=== PATIENT | female | born 1995 | race Caucasian/White ===

== ENCOUNTER 2019-08-09 13:59 | Inpatient (IN) | payer OTHER ==
--- NOTE | 2019-08-09 14:34 | ED ---
General Adult HPI - General Source: patient, RN notes reviewed, old records reviewed Mode of arrival: ambulatory Limitations: no limitations <Gui Calabrese - Last Filed: 08/09/19 14:33> <Richard Linares - Last Filed: 08/09/19 16:36> - General Chief complaint: Psychiatric Symptoms Stated complaint: Mental Health Time Seen by Provider: 08/09/19 14:05 - History of Present Illness Initial comments: This is a 24-year-old female who previous psychiatric history. According to the fianc she's been under a lot of stress and very tired lately he states that she lost her mother about 2 years ago and her father about 2 months ago and she has been very depressed about this. This morning she was talking about wanting to end it on that she started walking to [place] to her fianc stopped her. Patient herself states she did want to kill himself but she's never attempted in the past. Patient denies any drug use patient denies any alcohol use recently. Patient denies any physical abuse today. Patient denies headache patient denies numbness weakness. Patient denies chest pain difficulty breathing shortness breath per patient denies any palpations. Patient denies any recent fever chills or cough per patient denies any abdominal pain patient denies nausea vomiting diarrhea. (Gui Calabrese) - Related Data Allergies Allergy/AdvReac Type Severity Reaction Status Date / Time sulfamethoxazole Allergy Rash/Hives Verified 08/09/19 15:34 [From Bactrim] trimethoprim [From Bactrim] Allergy Rash/Hives Verified 08/09/19 15:34 Review of Systems ROS Other: All systems not noted in ROS Statement are negative. <Gui Calabrese - Last Filed: 08/09/19 14:33> ROS Other: All systems not noted in ROS Statement are negative. <Richard Linares - Last Filed: 08/09/19 16:36> ROS Statement: Those systems with pertinent positive or pertinent negative responses have been documented in the HPI. Past Medical History Additional Past Medical History / Comment(s): leukemia age 4 History of Any Multi-Drug Resistant Organisms: None Reported Additional Past Surgical History / Comment(s): ankle Past Psychological History: No Psychological Hx Reported Smoking Status: Current every day smoker Past Alcohol Use History: Occasional Past Drug Use History: Marijuana <Gui Calabrese - Last Filed: 08/09/19 14:33> General Exam Limitations: no limitations <Gui Calabrese - Last Filed: 08/09/19 14:33> - General Exam Comments Initial Comments: GENERAL: Patient is well-developed and well-nourished. Patient is nontoxic and well- hydrated and is in mild distress. ENT: Neck is soft and supple. No significant lymphadenopathy is noted. Oropharynx is clear. Moist mucous membranes. Neck has full range of motion without eliciting any pain. EYES: The sclera were anicteric and conjunctiva were pink and moist. Extraocular movements were intact and pupils were equal round and reactive to light. Eyelids were unremarkable. PULMONARY: Unlabored respirations. Good breath sounds bilaterally. No audible rales rhonchi or wheezing was noted. CARDIOVASCULAR: There is a regular rate and rhythm without any murmurs gallops or rubs. ABDOMEN: Soft and nontender with normal bowel sounds. SKIN: Skin is clear with no lesions or rashes and otherwise unremarkable. NEUROLOGIC: Patient is alert and oriented x3. Cranial nerves II through XII are grossly intact. Motor and sensory are also intact. Normal speech, volume and content. Symmetrical smile. MUSCULOSKELETAL: Normal extremities with adequate strength and full range of motion. LYMPHATICS: No significant lymphadenopathy is noted PSYCHIATRIC: Normal psychiatric evaluation. (Gui Calabrese) Course Vital Signs 08/09/19 08/09/19 08/09/19 14:03 15:08 16:03 Temperature 98.0 F Pulse Rate 73 Respiratory 18 20 20 Rate Blood Pressure 122/81 O2 Sat by Pulse 99 Oximetry Medical Decision Making <Gui Calabrese - Last Filed: 08/09/19 14:33> <Richard Linares - Last Filed: 08/09/19 16:36> - Medical Decision Making Dr. Linares be taking over the care of this patient at 3:00. (Gui Calabrese) Patient's care had been signed out at shift change awaiting EPS evaluation. Patient was evaluated by EPS and will be admitted for psychiatric evaluation and treatment. Patient is agreeable. She has been admitted to this institution. (Richard Linares) - Lab Data Lab Results 08/09/19 08/09/1920 Range/Units 14:47 14:47 14:47 Urine Color Light Yellow Urine Appearance Clear (Clear) Urine pH 6.5 (5.0-8.0) Ur Specific [place] 1.009 (1.001-1.035) Urine Protein Negative (Negative) Urine Glucose (UA) Negative (Negative) Urine Ketones Negative (Negative) Urine Blood Negative (Negative) Urine Nitrite Negative (Negative) Urine Bilirubin Negative (Negative) Urine Urobilinogen <2.0 (<2.0) mg/dL Ur Leukocyte Esterase Negative (Negative) Urine HCG, Qual Not Detected (Not Detectd) Urine Opiates Screen Not Detected (NotDetected) Ur Oxycodone Screen Not Detected (NotDetected) Urine Methadone Screen Not Detected (NotDetected) Ur Propoxyphene Screen Not Detected (NotDetected) Ur Barbiturates Screen Not Detected (NotDetected) U Tricyclic Antidepress Not Detected (NotDetected) Ur Phencyclidine Scrn Not Detected (NotDetected) Ur Amphetamines Screen Not Detected (NotDetected) U Methamphetamines Scrn Not Detected (NotDetected) U Benzodiazepines Scrn Not Detected (NotDetected) Urine Cocaine Screen Not Detected (NotDetected) U Marijuana (THC) Screen Detected H (NotDetected) Disposition <Gui Calabrese - Last Filed: 08/09/19 14:33> Is patient prescribed a controlled substance at d/c from ED?: No Decision to Admit Reason: Admit from EC Decision Date: 08/09/19 Decision Time: 16:36 <Richard Linares - Last Filed: 08/09/19 16:36> Clinical Impression: Depression, Suicidal ideation Disposition: ADMITTED IP TO THIS [facility] Condition: Stable
[2019-08-09 15:08] LABS: Amphetamine Screen,Urine Not Detected (NotDetected); Barbiturate Screen,Urine Not Detected (NotDetected); Benzodiazepines Screen,Urine Not Detected (NotDetected); Cocaine Screen,Urine Not Detected (NotDetected); Methadone Screen, Urine Not Detected (NotDetected); Opiate Screen,Urine Not Detected (NotDetected); Oxycodone Screen, Urine Not Detected (NotDetected); Phencyclidine Screen,Urine Not Detected (NotDetected); Tricyclic Antidepressant,Urine Not Detected (NotDetected); Urn Cannabinoid Scrn Detected (NotDetected)
[2019-08-09] MEDS ORDERED: ZIPRASIDONE 20 MG VIAL IM PRN (15:55)
[2019-08-09] MEDS ORDERED: MAG HYDROX/AL HYDROX/SIMETH 30 ML CUP PO PRN (15:55)
[2019-08-09] MEDS ORDERED: MAGNESIUM HYDROXIDE 2,400 MG/10 ML CUP PO PRN (15:55)
[2019-08-09] MEDS ORDERED: LORazepam 1 MG TAB PO PRN (15:55)
[2019-08-09] MEDS ORDERED: ACETAMINOPHEN TAB 325 MG TAB PO PRN (15:55)
[2019-08-09 16:04] LABS: Appearance,Urine Clear (Clear); Bilirubin,Urine Negative (Negative); Blood,Urine Negative (Negative); Color,Urine Light Yellow; Glucose,Urine (UA) Negative (Negative); Ketones,Urine Negative (Negative); Leukocyte Esterase,Urine Negative (Negative); Nitrite,Urine Negative (Negative); PH, Urine 6.5 (5.0-8.0); Protein,Urine Negative (Negative); Specific Gravity,Urine 1.009 (1.001-1.035); Urobilinogen,Urine <2.0 mg/dL (<2.0)
[2019-08-10 06:47] LABS: Basophils % (A) 0 %; Eosinophils # (A) 0.2 k/uL (0-0.7); Eosinophils % (A) 1 %; HCT 42.8 % (34.0-46.0); HGB 13.6 gm/dL (11.4-16.0); Hypochromasia Slight; Lymphocytes # (A) 2.8 k/uL (1.0-4.8); Lymphocytes % (A) 26 %; MCH 26.3 pg (25.0-35.0); MCHC 31.7 g/dL (31.0-37.0); Mean Platelet Volume 9.5; Monocytes # (A) 0.4 k/uL (0-1.0); Monocytes % (A) 4 %; Neutrophils # (A) 7.4 k/uL (1.3-7.7); Neutrophils % (A) 68 %; Platelet Count 378 k/uL (150-450); RBC 5.15 m/uL (3.80-5.40); RDW 15.6 % (11.5-15.5); WBC 10.9 k/uL (3.8-10.6)
[2019-08-10 06:50] LABS: ALT 12 U/L (4-34); AST 22 U/L (14-36); African American GFR (CKD) >90 (>60 ml/min/1.73 sqM); Albumin 3.9 g/dL (3.5-5.0); Alkaline Phosphatase 90 U/L (38-126); Anion Gap 5 mmol/L; Blood Urea Nitrogen 11 mg/dL (7-17); Calcium 9.4 mg/dL (8.4-10.2); Carbon Dioxide 28 mmol/L (22-30); Chloride 103 mmol/L (98-107); Glucose 89 mg/dL (74-99); Non-African American GFR(CKD) >90 (>60 ml/min/1.73 sqM); Potassium 4.7 mmol/L (3.5-5.1); Sodium 136 mmol/L (137-145); Total Bilirubin 0.5 mg/dL (0.2-1.3)
--- NOTE | 2019-08-10 11:51 | P.HP ---
Psychiatric H&P - . H&P Date: 08/10/19 History & Physical: Allergies Allergy/AdvReac Type Severity Reaction Status Date / Time sulfamethoxazole Allergy Rash/Hives Verified 08/09/19 16:57 From Bactrim trimethoprim From Bactrim Allergy Rash/Hives Verified 08/09/19 16:57 Vital Signs Temp 98.5 F 08/10/19 06:37 Pulse 89 08/10/19 06:37 Resp 16 08/10/19 06:37 BP 119/69 08/10/19 06:37 Pulse Ox 97 08/09/19 16:35 Intake & Output 08/09/19 08/10/19 08/10/19 18:59 06:59 18:59 Weight 58.967 kg Laboratory Last Values WBC 10.9 k/uL (3.8-10.6) H 08/10/19 06:26 RBC 5.15 m/uL (3.80-5.40) 08/10/19 06:26 Hgb 13.6 gm/dL (11.4-16.0) 08/10/19 06:26 Hct 42.8 % (34.0-46.0) 08/10/19 06:26 MCV 83.0 fL (80.0-100.0) 08/10/19 06:26 MCH 26.3 pg (25.0-35.0) 08/10/19 06:26 MCHC 31.7 g/dL (31.0-37.0) 08/10/19 06:26 RDW 15.6 % (11.5-15.5) H 08/10/19 06:26 Plt Count 378 k/uL (150-450) 08/10/19 06:26 Neutrophils % 68 % 08/10/19 06:26 Lymphocytes % 26 % 08/10/19 06:26 Monocytes % 4 % 08/10/19 06:26 Eosinophils % 1 % 08/10/19 06:26 Basophils % 0 % 08/10/19 06:26 Neutrophils # 7.4 k/uL (1.3-7.7) 08/10/19 06:26 Lymphocytes # 2.8 k/uL (1.0-4.8) 08/10/19 06:26 Monocytes # 0.4 k/uL (0-1.0) 08/10/19 06:26 Eosinophils # 0.2 k/uL (0-0.7) 08/10/19 06:26 Basophils # 0.0 k/uL (0-0.2) 08/10/19 06:26 Hypochromasia Slight 08/10/19 06:26 Sodium 136 mmol/L (137-145) L 08/10/19 06:26 Potassium 4.7 mmol/L (3.5-5.1) 08/10/19 06:26 Chloride 103 mmol/L (98-107) 08/10/19 06:26 Carbon Dioxide 28 mmol/L (22-30) 08/10/19 06:26 Anion Gap 5 mmol/L 08/10/19 06:26 BUN 11 mg/dL (7-17) 08/10/19 06:26 Creatinine 0.60 mg/dL (0.52-1.04) 08/10/19 06:26 Est GFR (CKD-EPI)AfAm >90 (>60 ml/min/1.73 sqM) 08/10/19 06:26 Est GFR (CKD-EPI)NonAf >90 (>60 ml/min/1.73 sqM) 08/10/19 06:26 Glucose 89 mg/dL (74-99) 08/10/19 06:26 Calcium 9.4 mg/dL (8.4-10.2) 08/10/19 06:26 Total Bilirubin 0.5 mg/dL (0.2-1.3) 08/10/19 06:26 AST 22 U/L (14-36) 08/10/19 06:26 ALT 12 U/L (4-34) 08/10/19 06:26 Alkaline Phosphatase 90 U/L (38-126) 08/10/19 06:26 Total Protein 7.0 g/dL (6.3-8.2) 08/10/19 06:26 Albumin 3.9 g/dL (3.5-5.0) 08/10/19 06:26 Urine Color Light Yellow 08/09/19 14:47 Urine Appearance Clear (Clear) 08/09/19 14:47 Urine pH 6.5 (5.0-8.0) 08/09/19 14:47 Ur Specific [place] 1.009 (1.001-1.035) 08/09/19 14:47 Urine Protein Negative (Negative) 08/09/19 14:47 Urine Glucose (UA) Negative (Negative) 08/09/19 14:47 Urine Ketones Negative (Negative) 08/09/19 14:47 Urine Blood Negative (Negative) 08/09/19 14:47 Urine Nitrite Negative (Negative) 08/09/19 14:47 Urine Bilirubin Negative (Negative) 08/09/19 14:47 Urine Urobilinogen <2.0 mg/dL (<2.0) 08/09/19 14:47 Ur Leukocyte Esterase Negative (Negative) 08/09/19 14:47 Urine HCG, Qual Not Detected (Not Detectd) 08/09/19 14:47 Urine Opiates Screen Not Detected (NotDetected) 08/09/19 14:47 Ur Oxycodone Screen Not Detected (NotDetected) 08/09/19 14:47 Urine Methadone Screen Not Detected (NotDetected) 08/09/19 14:47 Ur Propoxyphene Screen Not Detected (NotDetected) 08/09/19 14:47 Ur Barbiturates Screen Not Detected (NotDetected) 08/09/19 14:47 U Tricyclic Antidepress Not Detected (NotDetected) 08/09/19 14:47 Ur Phencyclidine Scrn Not Detected (NotDetected) 08/09/19 14:47 Ur Amphetamines Screen Not Detected (NotDetected) 08/09/19 14:47 U Methamphetamines Scrn Not Detected (NotDetected) 08/09/19 14:47 U Benzodiazepines Scrn Not Detected (NotDetected) 08/09/19 14:47 Urine Cocaine Screen Not Detected (NotDetected) 08/09/19 14:47 U Marijuana (THC) Screen Detected (NotDetected) H 08/09/19 14:47 08/10/19 11:43 IDENTIFYING DATA: Patient is a 24-year-old female who has 2 kids is currently unemployed and lives with her fianc and children. HPI: Patient presented to the hospital yesterday was brought in by her fianc due to depression and apparent suicide attempt. As per ER report patient was feeling depressed and fiinocente claimed that she has been under "more stress lately" and also claimed that patient lost her mother 2 years ago and her father 2 months ago. According to ER report, patient apparently walked into a [place] to attempt [place]. Patient was seen on the unit and was agreeable to be interviewed by medical underwriter. She appeared to have fair hygiene and grooming however soft tone of voice yet was cooperative. She spoke about feeling depressed and anxious for 4 years now and claims that the of her mother she believes was the trigger for it. She claims that she also lost her father 2 months ago and states that she used to live with her father before it happened. She claims that her boyfriend called to bring her into the hospital as she told him that she drove to the [place] and walked into the water to kill herself. She states that she stopped and turned around while in the water as she was thinking about her kids. She claims that it's been hard to cope with the for her and she also states that she has had a poor relationship with her family and has not been speaking to them lately. She states that her sleep is poor and having frequent awakenings. She claims that she has poor appetite and poor concentration. Patient denies any suicidal or homicidal ideations intent or plan. At this time patient denies any auditory or visual hallucinations. Patient denies any flight of ideas racing thoughts and increased in goal directed behavior. Patient admits to using marijuana daily at nighttime for sleep. She claims to smoke cigarettes daily and alcohol occasionally and denies any other drug use. PAST PSYCHIATRIC HISTORY: Patient states that she has a history of depression and anxiety however states that she has never been on any psychiatric medications or ever had any psychiatric outpatient follow-up. She denies any previous psychiatric hospitalizations or any suicide attempts in the past. PMH: Asthma ALLERGIES: as per EMR CHEMICAL DEPENDENCY HISTORY: as per HPI FAMILY PSYCHIATRIC/SUBSTANCE USE HISTORY: She states that her brother has some form of mental illness and has attempted suicide several times. SOCIAL HISTORY: Patient was born and raised in [place] and raised in [facility]. She claims that she lives locally now and lives with her fianc and her kids and is currently unemployed. 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 She states that she completed high school however did not attend college. MENTAL STATUS EXAM: General Appearance: Patient appears to be stated age is alert, directable, and attempts to cooperate. Patient appears to have fair hygiene and grooming. Behavior: Patient is seated without any agitated behavior. Attempts to cooperate. Speech: Patient's speech is fluent and nonpressured. Soft spoken. Mood/Affect: Patient reports their mood is depressed and anxious, affect is congruent and constricted. Suicidality/Homicidality: Patient denies having any homicidal ideation intent or plan. Denies any suicidal ideations intent or plan Perceptions: Patient denies any visual hallucinations and denies any auditory hallucinations Though content/process: There is no evidence of any delusional thought content and thought process is linear and goal-directed. Depressive content. Memory and concentration: AOX3, grossly intact for the purposes of this session. Can spell "WORLD" backwards Judgment and insight: poor STRENGTHS/WEAKNESSES: strength is that patient is resilient. Weakness is that patient has poor social support from family INTELLECT: average IMPRESSIONS: Major depressive disorder, severe, without psychotic features Cannabis use disorder, mild Nicotine dependence PLAN: -Patient is admitted under voluntary status to [facility] for stabilization of psychiatric symptoms and safety. Patient signed adult voluntary form and medication consent and is placed in patient's chart. -Medications : Will start patient on Zoloft 50 mg daily for mood/anxiety, trazodone 25 mg daily at bedtime for insomnia/mood. -Ativan and Geodon PRN for agitation/aggression -Patient was informed of the risks, benefits and side effects of the medication and patient verbally consented to taking the medications. Patient signed med consent form and was placed in chart. -Internal Medicine consult to perform medical evaluation and physical. -NRT -nicotine gum -SW on board for discharge planning. Encourage patient to participate in groups to work on coping skills.
[2019-08-10] MEDS: SERTRALINE 50 MG TAB PO SCH (11:58)
[2019-08-10] MEDS ORDERED: ALBUTEROL HFA INHALER INHALATION PRN (12:01)
--- NOTE | 2019-08-10 13:30 | P.MDCNMH ---
History of Present Illness H&P Date: 08/10/19 Chief Complaint: Depression 24-year-old female with history of depression here for suicidal ideation and severe worsening of her depression. According to the fianc she's been very tired and under a lot of stress lately. He states that she lost her mother about 2 years ago and her father about 2 months ago and she has been very depressed about this. No physical symptoms including headache, numbness, weakness, chest pain, difficulty breathing, palpations, fever chills or cough, abdominal pain, nausea vomiting diarrhea. Review of Systems Complete review of system performed, pertinent positives per HPI, otherwise negative Past Medical History Additional Past Medical History / Comment(s): leukemia age 4 History of Any Multi-Drug Resistant Organisms: None Reported Additional Past Surgical History / Comment(s): ankle Smoking Status: Current every day smoker Medications and Allergies Home Medications Medication Instructions Recorded Confirmed Type No Known Home Medications 08/09/19 08/09/19 History Allergies Allergy/AdvReac Type Severity Reaction Status Date / Time sulfamethoxazole Allergy Rash/Hives Verified 08/09/19 16:57 [From Bactrim] trimethoprim [From Bactrim] Allergy Rash/Hives Verified 08/09/19 16:57 Physical Exam Vitals: Vital Signs Temp Pulse Pulse Resp BP BP Pulse Ox 08/10/19 06:37 98.5 F 89 16 119/69 08/09/19 21:00 98.9 F 08/09/19 18:12 99.5 F 08/09/19 16:35 80 14 122/76 97 08/09/19 16:11 20 08/09/19 16:03 20 08/09/19 15:08 20 08/09/19 14:03 98.0 F 73 18 122/81 99 Intake and Output 08/09/19 08/10/19 08/10/19 22:59 06:59 14:59 Other: Weight 58.967 kg Constitutional: No acute distress, conversant, pleasant Eyes:Anicteric sclerae, moist conjunctiva, no lid-lag, PERRLA, ENMT: Oropharynx clear, no erythema, exudates Neck: Supple, FROM, no masses, or JVD, No carotid bruits, No thyromegaly Lungs: Clear to auscultation, Clear to percussion, Normal respiratory effort, no accessory muscle use Cardiovascular: Heart regular in rate and rhythm, No murmurs, gallops, or rubs, No peripheral edema Abdominal: Soft, Nontender, no guarding, rebound or rigidity, Normoactive bowel sounds, No hepatomegaly, No splenomegaly, No palpable mass Skin: Normal temperature, tone, texture, turgor, no induration, No subcutaneous nodules, No rash, lesions, No ulcers Extremities: No digital cyanosis, No clubbing, Pedal pulses intact and symmet rical, Radial pulses intact and symmetrical, No calf tenderness Psychiatric: Alert and oriented to person, place and time, appropriate affect, intact judgement Neuro: Muscles Strength 5/5 in all 4 extremities, Sensation to light touch grossly present throughout, Cranial nerves II-XII grossly intact, no focal sensory deficits Cranial Nerve Examination - Cranial Nerves Cranial Nerve II- Optic: Intact Cranial Nerve III- Oculomotor: Intact Cranial Nerve IV- Trochlear: Intact Cranial Nerve V- Trigeminal: Intact Cranial Nerve - Abducens: Intact Cranial Nerve VII- Facial: Intact Cranial Nerve VIII- Auditory: Intact Cranial Nerve IX- Glossopharyngeal: Intact Cranial Nerve X- Vagus: Intact Cranial Nerve XI- Accessory: Intact Cranial Nerve XII- Hypoglossal: Intact Results CBC & Chem 7: 08/10/19 06:26 08/10/19 06:26 Labs: Abnormal Lab Results - Last 24 Hours (Table) 08/09/19 08/10/19 08/10/19 Range/Units 14:47 06:26 06:26 WBC 10.9 H (3.8-10.6) k/uL RDW 15.6 H (11.5-15.5) % Sodium 136 L (137-145) mmol/L U Marijuana (THC) Screen Detected H (NotDetected) Assessment and Plan Plan: Suicidal ideation and severe depression Per psychiatry management Health maintenance Labs reviewed, all normal including CBC, CMP and TSH Smoking Advised to quit
[2019-08-10] MEDS: NICOTINE POLACRILEX 2 MG GUM BUCCAL PRN (15:08)
[2019-08-10] MEDS: traZODone HCL 50 MG TAB PO SCH (20:50)
[2019-08-11] MEDS: SERTRALINE 50 MG TAB PO SCH (09:16)
--- NOTE | 2019-08-11 10:53 | P.PN ---
Progress Note - Text Interval history: The patient's found at the front end technician she follows me to an interview room. She reports that her mood is improved. I did review the psychiatric evaluation no and spoke to the treatment team regarding her presentation and care. She states that she did have suicidal thoughts she walked into the [place] up to her knees and then aborted the attempt. She indicates that she then realized she did not want to because she needed to live for her children. She went home told her boyfriend and they presented to the hospital. She has been placed on Zoloft for depressive symptoms she has no questions or concerns regarding the medication. She has been attending all groups. She is demonstrated no agitated behavior. She has been speaking with her boyfriend via phone in those conversations have been supportive. Mental status exam: The patient is alert she is dressed in her own clothing hygiene grooming adequate eye contact is appropriate. She is wearing eyeglasses. Speech is fluent spontaneous nonpressured. She reports that her mood is better she is reporting no hopelessness thinking or any suicidal ideation intent or plan. She is reporting no homicidal ideation intent or plan. She is endorsing no auditory or visual hallucinations or any specific delusions. There is no observed evidence of psychosis. She demonstrates no tangential thinking loose associations or flight of ideas. He does not appear hypomanic or manic. Insight and judgment appear to be improving. She is oriented to person place and date. Affect is mildly constricted. Plan: The patient will continue on her current psychotropic medication. We discussed the possibility of titrating the dose. She is encouraged to continue participating in the milieu. We will monitor her for safety. Social work will contact her boyfriend to discuss her treatment and discharge planning. It is possible that she may be appropriate for discharge in the next 1-2 days depending on her clinical stability and improvement. Vital signs reviewed.
[2019-08-11] MEDS: NICOTINE POLACRILEX 2 MG GUM BUCCAL PRN (19:09)
[2019-08-11] MEDS: traZODone HCL 50 MG TAB PO SCH (21:02)
[2019-08-12 06:41] VITALS: BP 106/60; PULSE 65; RESP 14; TEMP 98.4
[2019-08-12] MEDS: SERTRALINE 50 MG TAB PO SCH (09:18)
--- NOTE | 2019-08-12 10:02 | P.DS ---
Providers Date of admission: 08/09/19 15:51 Expected date of discharge: 08/12/19 Attending physician: Kannan Hernandez Consults: 08/09/19 15:55 Consult Physician Routine Consulting Provider: Erlin Tesfaye Consult Reason/Comments: Follow up H & P Do you want consulting provider notified?: Yes Primary care physician: Stated None - Discharge Diagnosis(es) (1) Major depressive disorder, recurrent severe without psychotic features Current Visit: Yes Status: Acute Priority: High (2) Cannabis use disorder, mild, abuse Current Visit: Yes Status: Acute Priority: Low Hospital Course: Brief summary admission note: This patient is a 24-year-old single female who was admitted to the mental health unit through the emergency room for suicidal ideation. She reported that she was feeling stressed and overwhelmed. She is experiencing ongoing feelings of grief due to the loss of her mother 2 years ago and her father 2 months ago. The patient reported that she had walked into the [place] up to her knees considering suicide. She then aborted the attempt told her boyfriend and she was brought in for help. She states that she could not go through with the suicide attempt because of her children. She reported that her sleep had been poor she been frequently waking. Appetite had been decreased concentration decreased. For full details please refer to the psychiatric evaluation note dictated 08/10/2019. Summary of hospital course: The patient was admitted to the mental health unit voluntarily. She was initially evaluated by Dr. Giang. He started Zoloft 50 mg as well as trazodone 25 mg at bedtime. The patient was seen by internal medicine for routine history and physical exam. Social work met with the patient to complete a psychosocial assessment and for discharge planning purposes. The patient attended all group she demonstrated no agitated behavior. She reported a progressive improvement of symptoms while here. Social work was able to contact the patient's boyfriend to obtain collateral information. He indicates that the patient sounds much better and he is comfortable with her returning home. The patient was able to tolerate the Zoloft without side effect. We discussed titrating the dose further to 100 mg but she preferred to keep it at 50 mg. She is willing to work with [facility] for outpatient follow-up. Mental status exam: The patient is an alert female appearing her stated age. She presents with adequate hygiene grooming. Eye contact is appropriate speech is fluent and spontaneous nonpressured. She reports her mood is good. Affect is congruent and bright. She demonstrates an appropriate range of affect. She is reporting no hopelessness thinking she reports no suicidal ideation intent or plan. She reports no homicidal ideation intent or plan. Specifically she reports having no thoughts of wanting to hurt or kill her children. She endorses no auditory or visual hallucinations. There is no evidence of any specific delusions. She demonstrates no tangential thinking loose associations or flight of ideas. There is no observed evidence of hypomania nerissa or psychosis. She demonstrates no verbal or physical aggressiveness she demonstrates no involuntary repetitive movements. Insight and judgment grossly intact. Cognitively she appears to be grossly intact. Impressions 1. Major depressive disorder recurrent severe without psychosis, cannabis use disorder mild Plan: The patient will be discharged mental health unit today she will return home residing with her boyfriend. She will continue on Zoloft 50 mg daily and trazodone 25 mg at bedtime. Social work will arrange for outpatient mental health follow-up most likely with [facility]. The patient's instructed to abstain from any use of alcohol marijuana or any illicit drugs. She does not wish to participate in inpatient chemical dependency treatment for her mild cannabis use disorder. No medication is required for that diagnosis at this time. There is no imminent safety risk she is appropriate for transition to outpatient care. She is instructed to return to the hospital any acute sa fety concerns. The patient was offered a prescription for her Nicorette gum she states that she does not want the prescription as she intends to not use any nicotine supplement. Patient Condition at Discharge: Stable Plan - Discharge Summary Discharge Rx Participant: No New Discharge Prescriptions: New traZODone HCL [Desyrel] 25 mg PO HS #15 tab Albuterol Inhaler [Ventolin Hfa Inhaler] 2 puff INHALATION RT-QID PRN puff PRN Reason: Shortness Of Breath Or Wheezing Sertraline [Zoloft] 50 mg PO DAILY #30 tab Discharge Medication List Albuterol Inhaler [Ventolin Hfa Inhaler] 2 puff INHALATION RT-QID PRN puff 08/12/19 [Rx] Sertraline [Zoloft] 50 mg PO DAILY #30 tab 08/12/19 [Rx] traZODone HCL [Desyrel] 25 mg PO HS #15 tab 08/12/19 [Rx] Follow up Appointment(s)/Referral(s): [facility] [Outside] - 08/14/19 1:00 pm (Telephone appointment on 08/14/19 at 1 pm with [facility].) None,Stated [Primary Care Provider] - 1-2 days Activity/Diet/Wound Care/Special Instructions: Activity and diet as tolerated. Avoid the use of street drugs and alcohol. Take all medications as prescribed. When you are in need of refills on your medications please contact your medical provider and/or outpatient psychiatrist to have this done. Please go to scheduled outpatient appointment for aftercare treatment. If symptoms return or become worse, call the crisis line at and/or go to the nearest emergency room for evaluation.
[2019-08-12] MEDS: NICOTINE POLACRILEX 2 MG GUM BUCCAL PRN (11:56)
== END 2019-08-12 12:26 | disposition home or self-care (01) | DRG 885 ==
LOC: EC 13:59 → 3MHU 15:51
PROVIDERS: ADMIT Psychiatry & Neurology Psychiatry; ATTEND Psychiatry & Neurology Psychiatry
DX: F33.2 Major depressive disorder, recurrent severe without psychotic features (principal); R45.851 Suicidal ideations; F41.9 Anxiety disorder, unspecified; F17.210 Nicotine dependence, cigarettes, uncomplicated; F12.10 Cannabis abuse, uncomplicated; J45.909 Unspecified asthma, uncomplicated; G47.00 Insomnia, unspecified; Z56.0 Unemployment, unspecified; Z88.2 Allergy status to sulfonamides; Z85.6 Personal history of leukemia
CPT/HCPCS: 80053; 80306; 81003; 81025; 82075; 84443; 85025; 99285

== ENCOUNTER 2020-02-10 10:22 | Emergency (ER) | payer OTHER ==
[2020-02-10 12:26] VITALS: TEMP 98.7
[2020-02-10 13:03] LABS: Appearance,Urine Clear (Clear); Bilirubin,Urine Negative (Negative); Blood,Urine Negative (Negative); Color,Urine Yellow; Glucose,Urine (UA) Negative (Negative); Ketones,Urine Negative (Negative); Leukocyte Esterase,Urine Negative (Negative); Nitrite,Urine Negative (Negative); Protein,Urine Negative (Negative); Specific Gravity,Urine 1.025 (1.001-1.035); Urobilinogen,Urine <2.0 mg/dL (<2.0)
--- NOTE | 2020-02-10 13:12 | ED ---
General Adult HPI - General Chief complaint: Abdominal Pain Stated complaint: Cough, runny nose, kidney infection Time Seen by Provider: 02/10/20 12:29 Source: patient, RN notes reviewed, old records reviewed Mode of arrival: ambulatory Limitations: no limitations - History of Present Illness Initial comments: 25 year old female patient to ED for evaluation. Patient reports that she has had a cough rhinitis sore throat for the last 2 weeks. She also reports that she's been having a little bit of dysuria today, denies any chance of STI. R eports some aching in her right flank. Denies any fevers. Denies any other complaints. Systemic: Pt denies fatigue, fever/chills, rash. Pt denies weakness, night sweats, weight loss. Neuro: Pt denies headache, visual disturbances, syncope or pre-syncope. HEENT: Pt denies ocular discharge or irritation, otalgia, rhinorrhea, pharyngitis or notable lymphadenopathy. Cardiopulmonary: Pt denies chest pain, SOB, heart palpitations, dyspnea on exertion. Abdominal/GI: Pt denies abdominal pain, n/v/d. : Denies new onset urinary or bowel incontinence. MSK: Pt denies myalgia, loss of strength or function in extremities. Neuro: Pt denies new onset weakness, paresthesias. - Related Data Previous Rx's Medication Instructions Recorded Albuterol Inhaler [Ventolin Hfa 2 puff INHALATION RT-QID PRN puff 08/12/19 Inhaler] Sertraline [Zoloft] 50 mg PO DAILY #30 tab 08/12/19 traZODone HCL [Desyrel] 25 mg PO HS #15 tab 08/12/19 Allergies Allergy/AdvReac Type Severity Reaction Status Date / Time sulfamethoxazole Allergy Rash/Hives Verified 02/10/20 10:29 [From Bactrim] trimethoprim [From Bactrim] Allergy Rash/Hives Verified 02/10/20 10:29 Review of Systems ROS Statement: Those systems with pertinent positive or pertinent negative responses have been documented in the HPI. ROS Other: All systems not noted in ROS Statement are negative. Past Medical History Additional Past Medical History / Comment(s): leukemia age 4 History of Any Multi-Drug Resistant Organisms: None Reported Additional Past Surgical History / Comment(s): ankle Past Psychological History: No Psychological Hx Reported Smoking Status: Never smoker Past Alcohol Use History: Occasional Past Drug Use History: Marijuana General Exam - General Exam Comments Initial Comments: Constitutional: NAD, AOX3, Pt has pleasant affect. HEENT: NC/AT, trachea midline, neck supple, no lymphadenopathy. Posterior pharynx non erythematous, without exudates. External ears appear normal, without discharge. Mucous membranes moist. Eyes PERRLA, EOM intact. There is no scleral icterus. No pallor noted. Cardiopulmonary: RRR, no murmurs, rubs or gallops, no JVD noted. Lungs CTAB in anterior and posterior cheney. No peripheral edema. Abdominal exam: Abdomen soft and non-distended. Abdomen non-tender to palpation in all 4 quadrants. Bowel sounds active in LLQ. No hepatosplenomegaly. No ecchymosis. Very mild right flank tenderness. Neuro: CN II-XII grossly intact. No nuchal rigidity. No raccon eyes, no schafer sign, no hemotympanum. No cervical spinal tenderness. MSK: Full active ROM in upper and lower extremities, 5/5 stregnth. Limitations: no limitations Course Vital Signs 02/10/20 02/10/20 02/10/20 10:26 12:24 13:25 Temperature 98.4 F 98.7 F Pulse Rate 109 H 64 61 Respiratory 18 20 18 Rate Blood Pressure 109/59 105/56 108/63 O2 Sat by Pulse 98 100 100 Oximetry 02/10/20 14:05 Temperature 98.7 F Pulse Rate 61 Respiratory 18 Rate Blood Pressure 108/63 O2 Sat by Pulse 100 Oximetry Medical Decision Making - Medical Decision Making 25 old female patient ED for chief complaint of cough congestion rhinitis last 2 weeks. Patient also reports that she has low bit of dysuria and some mild right flank discomfort. H vital signs are stable, afebrile. Physical exam displayed right flank tenderness. Urine is negative for infection. Coronavirus is negative. Chest xray negative for acute pathology. Shared decision making patient declined further workup will monitor symptoms at home follow up with primary care provider tomorrow and return to ER with any worsening symptoms. The rapid coronavirus test was negative a send out was ordered. Case discussed with Dr. Barrera. - Lab Data Lab Results 02/10/20 02/10/20 02/10/20 Range/Units 12:28 12:31 12:31 Urine Color Yellow Urine Appearance Clear (Clear) Urine pH 7.0 (5.0-8.0) Ur Specific [place] 1.025 (1.001-1.035) Urine Protein Negative (Negative) Urine Glucose (UA) Negative (Negative) Urine Ketones Negative (Negative) Urine Blood Negative (Negative) Urine Nitrite Negative (Negative) Urine Bilirubin Negative (Negative) Urine Urobilinogen <2.0 (<2.0) mg/dL Ur Leukocyte Esterase Negative (Negative) Urine HCG, Qual Not Detected (Not Detectd) Coronavirus (PCR) Not Detected (Not Detectd) Disposition Clinical Impression: Cough, Rhinitis Disposition: HOME SELF-CARE Condition: Stable Instructions (If sedation given, give patient instructions): Acute Cough (ED) Additional Instructions: Follow up with PCP tomorrow. Return to ED with any worsening symptoms. Is patient prescribed a controlled substance at d/c from ED?: No Referrals: None,Stated [Primary Care Provider] - 1-2 days Prateek Moreno [STAFF PHYSICIAN] - 1-2 days Rui Rabago MD [REFERRING] - 1-2 days
--- NOTE | 2020-02-10 13:20 | XR ---
EXAMINATION TYPE: XR chest 2V DATE OF EXAM: 02/10/2020 COMPARISON: NONE HISTORY: Cough and sore throat. TECHNIQUE: Frontal and lateral views of the chest are obtained. FINDINGS: There is no focal air space opacity, pleural effusion, or pneumothorax seen. The cardiac silhouette size is within normal limits. The osseous structures are intact. IMPRESSION: No acute cardiopulmonary process.
--- NOTE | 2020-02-10 13:22 | XR ---
EXAMINATION TYPE: XR KUB DATE OF EXAM: 02/10/2020 1:15 PM CLINICAL HISTORY: Right-sided abdominal pain TECHNIQUE: Two Upright KUB images of the abdomen are obtained. COMPARISON: None. FINDINGS: Scattered gas is seen in non-distended stomach and small bowel loops. Gas and fecal materia l is seen in non-distended colon. There is no visceromegaly, pneumoperitoneum, or abnormal calcificat ion appreciated. The lung bases are clear and the osseous structures are intact. IMPRESSION: Overall nonobstructive bowel gas pattern.
[2020-02-10 13:26] VITALS: BP 108/63; PULSE 61; RESP 18
== END 2020-02-10 14:05 | disposition home or self-care (01) ==
LOC: EC 10:22
DX: J31.0 Chronic rhinitis (principal); Z20.828 Contact with and (suspected) exposure to other viral communicable diseases; R30.0 Dysuria; Z88.2 Allergy status to sulfonamides; Z88.1 Allergy status to other antibiotic agents; Z85.6 Personal history of leukemia
CPT/HCPCS: 81003; 81025; 87086; 87081; 87430; 87635; 71046; 74018; 99284; U0003